=== PATIENT | male | born 1975 | race Caucasian/White ===

== ENCOUNTER 2022-06-02 17:48 | Emergency (ER) | payer OTHER, SELFPAY ==
[2022-06-02 17:52] VITALS: BP 122/87; PULSE 111; RESP 18; TEMP 37.4; O2SAT 99; BMI 26.0
--- NOTE | 2022-06-02 18:04 | W.ED.GENADLT ---
HPI - General Adult General: Chief complaint: General Medical Stated complaint: heat exposure Time Seen by Provider: 06/02/22 17:53 Source: patient and EMS Mode of arrival: EMS Limitations: no limitations History of Present Illness: 46-year-old male who states that he was changing a fuel filter outside today. He states that when he taken it off he dumped gas all over himself he states that he started inhaling the fumes and was also extremely hot from being outside. He states he started getting really lightheaded and almost passed out. People they called EMS he states that now since he is away from the gas he feels improved. He denies any pain anywhere. Associated symptoms: Deny chest pain, dyspnea, headache(s), nausea, rash or vomiting Review of Systems Const: Denies: fever(s), chills, body aches or change in appetite Eyes: Denies: blurry vision or eye discomfort ENMT: Denies: throat pain or dental pain Card: Denies: chest pain Resp: Denies: dyspnea GI: Denies: abdominal pain, nausea, vomiting or diarrhea : Denies: dysuria Musc: Denies: neck pain or back pain Skin/Breast: Denies: rash Neuro: Denies: headache(s) Psych: Denies: depression Mars/Lymph: Denies: easy bruising All/Imm: Denies: urticaria PFS ED PFSH: Medical History (Updated 06/02/22 @ 18:05 by Bryan Acosta MD) No pertinent past medical history Social History (Updated 06/02/22 @ 18:05 by Bryan Acosta MD) Substance/Drug Use: never Physical Exam Const: COMMON NORMALS: no acute distress, patient oriented x3 and healthy appearing HENMT: COMMON NORMALS: normocephalic and atraumatic HEAD & SCALP: normocephalic and atraumatic Eye: COMMON NORMALS: Equal, round and reactive pupils present and EOMs intact bilaterally PUPIL: Yes Equal, round and reactive pupils present Neck/C-Spine: COMMON NORMALS: full ROM and supple Chest: COMMONS NORMALS: normal inspection of the chest and normal palpation of entire chest wall Resp: COMMON NORMALS: normal respiratory effort, No retractions, No use of accessory muscles and clear to auscultation bilaterally AUSCULTATION: clear to auscultation bilaterally Cardio: COMMON NORMALS: regular rate, regular rhythm and No murmurs present (Cardio) RATE: regular rate RHYTHM: regular rhythm GI: COMMON NORMALS: Normal to inspection, nondistended, normoactive bowel sounds present, Soft to palpation, non-tender and no masses PALPATION: Yes Soft to palpation Extremity: COMMON NORMALS: normal to inspection and full ROM Neuro: COMMON NORMALS: patient oriented x3, moves all extremities and no focal motor deficits Psych: COMMON NORMALS: mental status grossly normal, Normal thought process present and cooperative THOUGHT PROCESS: Normal thought process present Skin: COMMON NORMALS: no rashes or lesions noted and no wounds GENERAL SKIN EXAM: no rashes or lesions noted Course Vital Signs: Vital signs: Vital Signs Temperature 99.4 F 06/02/22 17:52 Pulse Rate 111 H 06/02/22 17:52 Respiratory Rate 18 06/02/22 17:52 Blood Pressure 122/87 06/02/22 17:52 Pulse Oximetry 99 06/02/22 17:52 MDM - General Adult Medical Decision Making pt care turned over to dr. drake for dispo Coding Level of Care Code ED Pain Management Nurse Practitioner for Chg Fwd Exam Comprehensive
[2022-06-03] MEDS: sodium chloride 0.9% 1,000 ML 999 ML IV (13:20)
== END 2022-06-02 19:03 | disposition home or self-care (01) ==
PROVIDERS: Emergency Provider Emergency Medicine
DX: T67.5XXA Heat exhaustion, unspecified, initial encounter (principal); X30.XXXA Exposure to excessive natural heat, initial encounter
CPT/HCPCS: 99283; J7030